=== PATIENT | female | born 1945 | race African-American/Black ===

== ENCOUNTER 2025-07-24 21:22 | Observation (INO) | payer OTHER, SELFPAY ==
[2025-07-24 15:21] VITALS: BP 150/82
[2025-07-24 16:02] LABS: Hematocrit 36.9 % (37.0-47.0); Hemoglobin 12.1 g/dL (12.0-16.0); Mean Corp Hgb Conc. 32.8 g/dL (33.0-37.0); Mean Corpuscular Volume 90.7 fL (81.0-99.0); Nucleated Red Blood Cells % 0 %; Platelet Count 241 10^3/uL (130-400); Red Cell Dist. Width 12.2 % (11.5-14.5)
[2025-07-24 16:28] LABS: ALT (SGPT) 33 U/L (0-35); AST (SGOT) 26 U/L (14-36); Albumin 4.4 g/dl (3.5-5.0); Alkaline Phosphatase 75 U/L (38-126); Blood Urea Nitrogen 23 mg/dl (7-17); Calcium 9.3 mg/dl (8.4-10.2); Carbon Dioxide 27 mmol/L (22-30); Chloride 101 mmol/L (98-107); Glucose 140 mg/dl (70-99); Potassium 4.3 mmol/L (3.5-5.1); Sodium 135 mmol/L (135-145); Total Protein 7.3 g/dl (6.3-8.2); eGFR > 60.00
[2025-07-24 16:39] LABS: Troponin I < 0.012 ng/ml
--- NOTE | 2025-07-24 18:00 | EDRN ---
Pt with multiple family members in full waiting room, including young children yelling and jumping on chairs. Respectfully asked family to lower volume and activity in order to maintain calm environment for other patients.
--- NOTE | 2025-07-24 18:53 | ED.CVA ---
History of Present Illness
General
Chief Complaint: CVA/TIA Symptoms
Source: patient and family
Time Seen by Provider: 07/24/25 18:33
Onset of Stroke Symptoms
Onset of symptoms known: Yes
Date of onset of symptoms: 07/24/25
History of Present Illness
History of Present Illness:
This patient is a 80-year-old female presents the emergency department with her granddaughter and grandson who witnessed the event today. They state that she is very active and [place] farm and she was 'moving around just fine'. Then,
granddaughter noted that she was sitting down, went over to her and noticed that she became 'totally limp'. She is described as looking 'out of it' without tonic-clonic activity. At one point she was drooling, started to yawn, and would not answer
her questions or speak. Her eyes were mostly open during this time. The whole episode lasted less than 10 minutes and then resolved completely. At that time, family noted that she appeared to have left facial droop. She maintained respirations.
No CPR was initiated. No incontinence. Patient is now back to her usual self without any complaints. Patient does not have memory of the event she remembers sitting down, but does not remember syncope/near syncope. Of note, patient 2 to 3 months
ago had a reported TIA which was described as patient having difficulty talking associated with one-sided weakness and her eyes looking 'fixed'. Patient was admitted to the hospital at that time, had a full workup including an implantable cardiac
monitor, and started on aspirin Plavix. Patient is fully compliant with her medications.
Past History
Past History
ED Past Medical History: HTN, Hypercholesterolemia and Other (TIA)
Social History
Tobacco: Non-smoker
Alcohol: None
Drug: None
Living: with family
Phy Exam
Physical Exam
Physical Exam:
GENERAL: Alert , in no apparent distress
EYE: pupils equal and reactive
NECK: Supple, no significant adenopathy.
ENT: o/p clr, mmm.
CARDIAC: Regular rate and rhythm .
LUNGS: Clear breath sounds bilaterally, no acute respiratory distress, no wheezes/rales/rhonchi
ABDOMEN: Soft, without focal tenderness, no r/g, no cvat
NEUROLOGICAL: Alert and oriented, no focal neuro deficits, motor 5 out of 5, sensory intact, cranial nerves II through XII intact, mcwich-ho-womb normal, NIH equal to 0
SKIN: Warm and dry, skin intact.
MUSCULOSKELETAL: No edema, well perfused.
PSYCH: Normal and appropriate interaction.
Scores
NIH Stroke Score
Level of Consciousness: 0 - Alert
LOC Questions: 0-Answers both correctly
LOC Commands: 0-Performs both correctly
Best Horizontal Gaze: 0-Normal
Visual Campbell: 0=Normal, no visual loss
Facial Palsy: 0=Normal, symmetrical
Motor - Right Arm: 0=No drift 10 seconds
Motor - Left Arm: 0=No drift 10 seconds
Motor - Right Le-No drift 5 seconds
Motor - Left Le-No drift 5 seconds
Limb Ataxia: 0-Absent
Sensation: 0-Normal
Best Language: 0-No aphasia
Dysarthria: 0-Normal
Extinction and Inattention: 0-No abnormality
NIH Total Score:: 0
Course
Orders/Labs/Results
Orders:
Orders
07/24/25 15:26
EKG [Electrocardiogram (*1)] Urgent
Reason for Study: Syncope
EKG- Treatment ONCE
07/24/25 15:[address] [CT Head W/o Iv Contrast] Urgent
Comment:
Reason For Exam: syncope
07/24/25 15:39
Complete Blood Count/With Diff Urgent
Comprehensive Metabolic Panel Urgent
Glycohemoglobin (HgbA1c) Urgent
Troponin I Urgent
07/24/25 20:57
Admit/Transfer Patient As Directed
Co-Sign Provider:
Level of Care: Observation services
Assign to:: Telemetry
Physician / Group: [email or web address]
Diagnosis: TIA/ CVA for syncope with transient facial droop
Reason for Telemetry: CVA/TIA
Date to Stop Telemetry: 07/27/25
Time to Stop Telemetry: 11:00
07/24/25 20:59
Code Status As Directed
Resuscitation Status: Full Code
07/24/25 22:16
Acetaminophen [Tylenol/Feverall] 650 mg RECTAL Q4HPRN PRN
Acetaminophen [Tylenol] 650 mg PO Q4HPRN PRN
07/24/25 22:16
Case Management Consult ONCE
Case Management Consult: Discharge Planning
Comment: stroke/tia
DIETARY IP CONSULT Routine
Reason for Consult: stroke/TIA
NEUROLOGY CONSULT Urgent
Consulting Provider: Micky Mcdonald
Was physician already notified: Yes
Reason for consult: TIA/CVA
Conference Interpreter Urgent
Activity As Directed
Activity Level: With Assistance
NIH Stroke Scale As Directed
Directions: Per protocol
Comment: every shift and with any change in condition or mental status
Neurological Checks As Directed
Frequency: q4h
Additional Instructions:: q4h x 24h upon admission to the floor, then qshift & with any change in condition
and mental status
Obtain Records As Directed
Dates of Information to be Released: 2024
Type of Information Requested: Discharge Summary
Patient Education As Directed
Type: Stroke education packet
Comment: provide to patient and family
Pneumatic Compression Sleeves As Directed
Type: Knee high
Swallow Screening CVA/TIA ONLY As Directed
Comment: NPO until swallowing screening completed
If patient FAILS swallow screening:: NPO, Speech Therapy consult, Aspiration Precautions
If patient PASSES swallow screening, diet:: Cholesterol Lowering
Above diet order entered?: Yes- passed screening
Vital Signs As Directed
Frequency: Per unit guidelines
Ot Eval And Treat Routine
Pt Eval And Treat Routine
Activity Level: With Assistance
Speech Therapy Eval & Treat Routine
DX Deep Vein Thrombosis Video Routine
07/25/25 06:27
Basic Metabolic Panel IN AM
Cardiovascular Evaluation IN AM
Complete Blood Count/No Diff IN AM
07/25/25 08:00
Amlodipine [Norvasc] 10 mg PO DAILY
Aspirin Chewable [Low Strength Aspirin] 81 mg PO DAILY
Carvedilol [Coreg] 25 mg PO BID
Clopidogrel Bisulfate [Plavix] 75 mg PO DAILY
Olmesartan Medoxomil [Benicar] 20 mg PO DAILY
07/25/25 18:00
Rosuvastatin Calcium [Crestor] 10 mg PO QPM
07/27/25 11:00
DC Protocol for Telemetry ONCE
Abnormal Lab Results
07/24/25
15:39
RBC 4.07 L 10^6/uL
(4.20-5.40)
Hct 36.9 L %
(37.0-47.0)
MCHC 32.8 L g/dL
(33.0-37.0)
Monocytes % 10.3 H %
(1.7-9.3)
BUN 23 H mg/dl
(7-17)
Glucose 140 H mg/dl
(70-99)
Hemoglobin A1c 5.7 H %
(4.0-5.6)
07/24/25 15:39
07/24/25 15:39
Vital Signs
Initial and Last Documented VS:
Initial Vital Signs
Temp Pulse Resp BP Pulse Ox
98.5 F 74 16 150/82 98
07/24/25 15:21 07/24/25 15:21 07/24/25 15:21 07/24/25 15:21 07/24/25 15:21
Last Documented Vital Signs
Temp Pulse Resp BP Pulse Ox
98.2 F 78 16 129/76 99
07/25/25 15:00 07/25/25 15:00 07/25/25 15:00 07/25/25 15:00 07/25/25 15:00
*Pulse Oximetry
SaO2: 98
Oxygen Mode of Delivery: Room air
Patient hypoxic: no
*Critical Care Note
Total Time (30-74mins, 75-104mins- exclusive of procedures): Not Applicable
Update Note
Update Note:
Patient presents to the Emergency Department with ___syncopal event
Number and Complexity of Problems Addressed at the Encounter
� Chronic conditions affecting care:
� Acute Exacerbation and/or Progression of Chronic Illness:
� Differential Diagnosis includes: But not limited to TIA, intracranial bleed, arrhythmia, etc. etc.
Amount and/or Complexity of Data to be Reviewed and Analyzed
� I performed an independent evaluation of and my interpretation is:
EKG: Read by me, normal sinus rhythm, LAD, no acute ischemia
CT:No acute intracranial abnormality noted.
Small focus of right frontal scalp soft tissue thickening which may represent a small contusion.
Xrays:
Laboratory Studies: Troponin within normal limits, generally unremarkable
Other:
� Review of other/old records reveals:
� Clinical information was obtained by an independent historian: Granddaughter who witnessed event and is at bedside, describes event in detail
� Prescriptions/Medications Considered but not given:
� Further testing considered but not performed:
Risk of Complications and/or Morbidity or Mortality of Patient Management
� Social determinants of health affecting care:
� Discussion with other providers (PCP, Hospitalists, Consultants, etc):
� Escalation of care including admission/observation vs risk of discharge considered: Since arrival in the ER and history and physical by me, patient is awake alert and very vibrant, very knowledgeable regarding her prior medical
history, blood pressure management, etc. 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 In regards to her implantable monitor, she reports Dr. Dalila stephens is her patient monitor who monitors this. I called their office , and there was an option to either leave
a message or send a text. I have not had a return of this message.
8:31 PM patient now asymptomatic. Unable to access results regarding patient's implantable monitor. Unclear specific etiology for her syncopal event� Consideration for arrhythmia versus vasovagal versus heat related versus TIA. Recommend
overnight observation which patient agrees to. [place] text sent to hospitalist.
ED Attending Note
-
Portions of this chart may have been created with voice recognition software.� Occasional wrong word or��sound alike� substitutions may have occurred due to the inherent limitations of voice recognition software.
Discharge Plan
Departure
Patient Disposition: Admit
Date of Disposition: 07/24/25
Time of Disposition: 20:31
Admit to: Telemetry
Presentation/result/management discussed w/ accepting MD/DO: Hospitalist
Condition: Fair
Discharge Problem:
Syncope
Interventions
Interventions:
*Risk Screen - Suicide Last Done: 07/24/25 22:34
*General Assessment Last Done: 07/24/25 15:21
*Neglect/Abuse Screening Last Done: 07/24/25 15:21
*ED- Fall Risk Assessment Last Done: 07/24/25 15:21
*ED COVID-19 Vaccine History Last Done: 07/24/25 22:34
*Nursing Disposition Last Done: 07/24/25 22:08
ED- Pulmonary Assessment Last Done: 07/24/25 18:30
ED- Neurological Assessment Last Done: 07/24/25 20:03
ED- Cardiac Assessment Last Done: 07/24/25 18:30
ED Swallowing Screen Last Done: 07/24/25 18:30
Discharge Date and Time
Discharge Date/Time: 07/24/25 22:15
[2025-07-24 19:00] VITALS: BP 143/66
[2025-07-24 20:00] VITALS: BP 135/68
--- NOTE | 2025-07-24 20:52 | HPS.HSE ---
Family Physician
-
Family Physician:
Chief Complaint
-
witnessed syncope
History of Present Illness
80F Non smoker HX TIA, HTN, HLD seen at ER
- witnessed syncope
- per grand kids - she is very active and they were at a farm and she was 'moving around just fine'.
- Then, granddaughter noted that she was sitting down, went over to her and noticed that she became 'totally limp'.
- She is described as looking 'out of it' without tonic-clonic activity.
- At one point she was drooling, started to yawn, and would not answer her questions or speak.
- eyes were mostly open during this time.
- The whole episode lasted less than 10 minutes and then resolved completely.
- At that time, family noted that she appeared to have left facial droop.
- No incontinence.
- Patient is now back to her usual self without any complaints.
- unable to recall the event she remembers sitting down, but does not remember syncope/near syncope.
Of note, patient 2 to 3 months ago had a reported TIA which was described as patient having difficulty talking associated with one-sided weakness and her eyes looking 'fixed'. Patient was admitted to the hospital at that time, had a full workup
including an implantable secured entrance monitor, and started on aspirin Plavix. Patient is fully compliant with her medications.
Medical History
Past Medical History
Past Medical History: Reports CVA (TIA ), HTN and Hypercholesterolemia
Past Surgical History: Reports None
Social History
Tobacco: Non-smoker
Alcohol: None
Living: With Family
Family History
Family History: Not pertinent
Allergies / Home Medications
Allergies reflects when Allergies were last updated in [facility].
Home Medications with original date entered in [facility]
Allergy/Medication List:
Allergies
Allergy/AdvReac Type Severity Reaction Status Date / Time
No Known Allergies Allergy Unverified 07/24/25 15:21
If medication reconciliation has not been performed, why?: Medication List N/A
Review of Systems
-
Constitutional: Reports No Symptoms
EENT: Reports No Symptoms
Respiratory: Reports No Symptoms
Cardiac: Reports Syncope
Abdomen/GI: Reports No Symptoms
: Reports No Symptoms
Musculoskeletal: Reports No Symptoms
Skin: Reports No Symptoms
Neurological: Reports See HPI
Endocrine: Reports No Symptoms
Hematologic/Lymphatic: Reports No Symptoms
Psych: Reports No Symptoms
Physical Exam
Vital Signs
Vital Signs
Temp Pulse Resp BP Pulse Ox
98.5 F 71 25 135/68 99
07/24/25 15:21 07/24/25 20:00 07/24/25 20:00 07/24/25 20:00 07/24/25 19:00
Physical Exam
General: Well Developed, Well Nourished and No Apparent Distress
HEENT: NormoCephalic, Moist mucous membranes and Atraumatic
Respiratory: Clear
Cardiac: S1/S2 and Regular Rhythm; No Murmur or Rub
GI: Soft, Non Tender, Non Distended and Normal Bowel Sounds; No Organomegaly
Rectal: Deferred by Provider
Musculoskeletal: No Clubbing, No Cyanosis and No Edema
Skin: No Rash
Neuro: Nonfocal/grossly intact
Laboratory Results
-
07/24/25 15:39
07/24/25 15:39
Laboratory Results
Total Bilirubin 0.4 mg/dl (0.2-1.3) 07/24/25 15:39
AST 26 U/L (14-36) 07/24/25 15:39
ALT 33 U/L (0-35) 07/24/25 15:39
Alkaline Phosphatase 75 U/L (38-126) 07/24/25 15:39
Troponin I < 0.012 ng/ml 07/24/25 15:39
Data Reviewed
-
CT Scan: Report Reviewed by me
Medical Tests (Nuc Med, Echo, EKG etc): Report Reviewed by me
Lab Data: Discussed with Physician
Impression/Plan
-
Vital Signs
Temp Pulse Resp BP Pulse Ox
98.5 F 71 25 135/68 99
07/24/25 15:21 07/24/25 20:00 07/24/25 20:00 07/24/25 20:00 07/24/25 19:00
NIH Stroke Score
Level of Consciousness: 0 - Alert
LOC Questions: 0-Answers both correctly
LOC Commands: 0-Performs both correctly
Best Horizontal Gaze: 0-Normal
Visual Campbell: 0=Normal, no visual loss
Facial Palsy: 0=Normal, symmetrical
Motor - Right Arm: 0=No drift 10 seconds
Motor - Left Arm: 0=No drift 10 seconds
Motor - Right Le-No drift 5 seconds
Motor - Left Le-No drift 5 seconds
Limb Ataxia: 0-Absent
Sensation: 0-Normal
Best Language: 0-No aphasia
Dysarthria: 0-Normal
Extinction and Inattention: 0-No abnormality
NIH Total Score:: 0
Relevant Data
07/24/25
WBC 4.9
Hgb 12.1
Plt Count 241
BUN 23 H
Creatinine 0.9
eGFR > 60.00
Troponin I < 0.012
EKG
SINUS RHYTHM WITH PREMATURE ATRIAL COMPLEXES WITH Aberrant conduction
POSSIBLE LEFT ATRIAL ENLARGEMENT
LEFT AXIS DEVIATION
MINIMAL VOLTAGE CRITERIA FOR LVH, MAY BE NORMAL VARIANT ( [employer] )
ABNORMAL ECG
NO PREVIOUS ECGS AVAILABLE
HCT
- No acute intracranial abnormality noted.
- Small focus of right frontal scalp soft tissue thickening which may re
NO PRIOR hospitalist admission:
ASSESSMENT & PLAN
Pending Rx reconciliation
Evaluation for TIA/ CVA
Syncope wit assoc facial droop - resolved
- Recent HX TIA s/p full workup including an implantable secured entrance monitor, and started on aspirin Plavix
- compliance with DAPL
- c/w DAPL
- c/w Rosuvastatin
- Brain MRI in AM
- Obtain records for [facility]
- Neuro consult
Essential HTN
- currently normotensive
- c/e amlodipine, carvedilol and olmarsartan - hold if SBP < 110
HLD
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
DVT Px: SCD
Full Code
OBS TLM
[2025-07-24 22:00] VITALS: BP 111/61
[2025-07-24 22:15] VITALS: BP 163/85
--- NOTE | 2025-07-24 22:30 | PTCARENOTE ---
Pt transported to 3W from ED via stretcher. Pt independent from stretcher to bed, vitals signs stable and NIH-0. Pt AAOX3, oriented to room and call rinaldi within reach. Pt on TELE #10.
[2025-07-25] VITALS (7 sets, daily range): BP systolic 105–149; BP diastolic 64–86; PULSE 76–90
[2025-07-25 07:08] LABS: Hematocrit 34.6 % (37.0-47.0); Hemoglobin 11.5 g/dL (12.0-16.0); Mean Corp Hgb Conc. 33.2 g/dL (33.0-37.0); Mean Corpuscular Volume 90.3 fL (81.0-99.0); Platelet Count 224 10^3/uL (130-400); Red Cell Dist. Width 12.2 % (11.5-14.5)
[2025-07-25] MEDS: NORVASC 10 MG PO (07:11)
[2025-07-25] MEDS: PLAVIX 75 MG PO (07:11)
[2025-07-25] MEDS: LOW STRENGTH ASPIRIN 81 MG PO (07:11)
[2025-07-25] MEDS: BENICAR 20 MG PO (07:11)
[2025-07-25] MEDS: COREG 25 MG PO (07:11)
--- NOTE | 2025-07-25 07:15 | W.PN.HOSP.TC ---
Today's Communication/Plan
-
DC home
Recommend to keep follow-up outpatient with neurologist and office specialist
Assessment / Plan
Assessment / Plan
#Syncope with associated facial droop suspected likely secondary to seizure versus vasovagal event
#History of TIA
CT head was negative for acute stroke
MRI brain was negative for acute stroke
Per discussion with neurology highly suspicious for seizure.
Neurology offered patient to be started on antiepileptic medication however patient refused states she will follow-up with her neurologist as outpatient.
Mild orthostatic before starting working with physical therapy however dizziness resolved. Patient was ambulating in the hallway. Can stop IV fluid later today.
Patient is being maintained on antiplatelet agents per her primary office specialist. Continue aspirin and Plavix
Continue with statin
Per neurology will defer antiplatelet agents to patient's primary office specialist
Primary hypertension
Continue with Norvasc, ARB and beta-ousmane
Follow-up with primary office specialist
Hyperlipidemia
Continue with statin
Discussed case with RN
Discussed case with patient daughter at bedside
Discussed case with neurologist. Per neurologist patient can be discharged no further testing required.
PT eval-no skilled PT needed
More than 30 minutes spent in discharge including
Final examination of the patient
Summarizing hospital stay
Instructions for continuing care to all relevant caregivers
Preparation of discharge records, prescriptions, and referral forms
Total time spent (in minutes): 52
Anticipated Discharge: Today
Subjective/Interval History
-
Date of Service: July 25, 2025
Patient stated yesterday she was out and about in her forearm. Patient was out in the sun yesterday.
Patient had breakfast and solid food. However was not drinking enough water. States she was sipping on it.
Currently denies any lightheadedness dizziness. Denies any weakness.
Denies any palpitations or chest pain.
Objective Data
-
Labs:
Laboratory Results
07/25/25
06:27
WBC 3.5 L
Hgb 11.5 L
Hct 34.6 L
Plt Count 224
Sodium Pending
Potassium Pending
Chloride Pending
Carbon Dioxide Pending
BUN Pending
Creatinine Pending
Glucose Pending
Calcium Pending
Vital Signs:
Vital Signs
Temp Pulse Resp BP Pulse Ox
98.3 F 68 16 138/74 100
07/25/25 07:10 07/25/25 07:11 07/25/25 07:10 07/25/25 07:11 07/25/25 07:10
I&O
07/24/25 07/25/25 07/26/25
06:59 06:59 06:59
Intake Total 480 / 480
Balance 480 / 480
Physical Exam
-
General: No Apparent Distress
HEENT: Normocephalic, Atraumatic and Moist Mucous Membranes
Respiratory: Clear to Auscultation
Cardiac: Regular Rhythm and S1/S2; Negative Murmur, Rub or Gallop
GI: Soft, Nontender, Nondistended and Normal Bowel Sounds; Negative Organomegaly
Rectal: Deferred by Provider
Musculoskeletal: No Clubbing, No Cyanosis and No Edema
Skin: Negative Rash
Neuro: Awake, Alert, Oriented, AO x 3, No Motor Deficits, Nonfocal/Grossly Intact and No Sensory Deficits; Negative Slurred Speech
Psych: Calm
[2025-07-25 07:39] LABS: Blood Urea Nitrogen 16 mg/dl (7-17); Calcium 9.2 mg/dl (8.4-10.2); Carbon Dioxide 30 mmol/L (22-30); Chloride 105 mmol/L (98-107); Estimated Creatinine Clearance 52 ml/min; Glucose 101 mg/dl (70-99); HDL Cholesterol 48 mg/dl; LDL Cholesterol, Calculated 91 mg/dl; Potassium 4.6 mmol/L (3.5-5.1); Sodium 139 mmol/L (135-145); Very Low Density Lipoprotein 13 mg/dl (0-30); eGFR > 60.00
[2025-07-25 08:17] LABS: Glycohemoglobin (HgbA1c) 5.7 % (4.0-5.6)
--- NOTE | 2025-07-25 10:05 | CON.NEURO ---
Neuro Assessment/Plan
Assessment
Brain MRI imgs rev'd, negative for acute stroke.
I believe this is a seizure as she had the same event several months ago, the exact same way. At that time, she had MRI, EEG, and loop recorder that didn�t show anything.
I offered her seizure RX, and discussed side effects of Keppra and Zonisamide. but she would rather wait and see how frequently these events were happening
Exam looks like stroke with a pretty obvious right facial droop when she smiles, and mild right sided weakness. with negative brain MRI, this is likely a chronic stroke.
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
So I don�t see any more testing that can be done and I think she can go home.
Consultation
Order
Date of Consultation: 07/25/25
Requesting Provider: Qi
Reason for Consult: syncope
Subjective/Objective
Subjective Data
Date of Service: July 25, 2025
from [facility]&p
- witnessed syncope
- per grand kids - she is very active and they were at a farm and she was 'moving around just fine'.
- Then, granddaughter noted that she was sitting down, went over to her and noticed that she became 'totally limp'.
- She is described as looking 'out of it' without tonic-clonic activity.
- At one point she was drooling, started to yawn, and would not answer her questions or speak.
- eyes were mostly open during this time.
- The whole episode lasted less than 10 minutes and then resolved completely.
- At that time, family noted that she appeared to have left facial droop.
- No incontinence.
- Patient is now back to her usual self without any complaints.
- unable to recall the event she remembers sitting down, but does not remember syncope/near syncope.
Of note, patient 2 to 3 months ago had a reported TIA which was described as patient having difficulty talking associated with one-sided weakness and her eyes looking 'fixed'. Patient was admitted to the hospital at that time, had a full workup
including an implantable director of cardiac rehabilitation, and started on aspirin Plavix. Patient is fully compliant with her medications.
patient reports exact same event several months ago. at the time, she had MRI, EEG, loop recorder, all negative. carotid ultrasound showed plaque without significant stenosis.
Objective Data
Vital Signs
Temp Pulse Resp BP Pulse Ox
36.8 C 68 16 138/74 100
07/25/25 07:10 07/25/25 07:11 07/25/25 07:10 07/25/25 07:11 07/25/25 07:10
Lab Results
07/25/25 06:27
07/25/25 06:27
Sodium 139 mmol/L (135-145) 07/25/25 06:27
Potassium 4.6 mmol/L (3.5-5.1) 07/25/25 06:27
BUN 16 mg/dl (7-17) 07/25/25 06:27
Glucose 101 mg/dl (70-99) H 07/25/25 06:27
Calcium 9.2 mg/dl (8.4-10.2) 07/25/25 06:27
LDL Cholesterol, Calc 91 mg/dl 07/25/25 06:27
Patient Allergies
No Known Allergies Allergy (Unverified 07/24/25 15:21)
Physical Exam
-
AAOx3, speech clear, language intact
VFF, EOMI, Right facial droop
RUE/LE 5-/5, LUE/LE full strength.
Medications
-
Active Medications
Generic Name Dose Route Start Last Admin
Trade Name Freq PRN Reason Stop Dose Admin
Acetaminophen 650 mg 07/24/25 22:16
Acetaminophen 650 Mg Rectal Suppository RECTAL 08/21/25 22:15
Q4HPRN PRN
CAMPBELL, mild pain, or temp >100.4F
Acetaminophen 650 mg 07/24/25 22:16
Acetaminophen 325 Mg Tablet PO 08/21/25 22:15
Q4HPRN PRN
CAMPBELL, mild pain, or temp >100.4F
Amlodipine Besylate 10 mg 07/25/25 08:00 07/25/25 07:11
Amlodipine 10 Mg Tablet PO 08/22/25 07:59 10 mg
DAILY VIDYA Administration
Aspirin 81 mg 07/25/25 08:00 07/25/25 07:11
Aspirin 81 Mg Chewable Tablet PO 08/22/25 07:59 81 mg
DAILY VIDYA Administration
Carvedilol 25 mg 07/25/25 08:00 07/25/25 07:11
Carvedilol 25 Mg Tablet PO 08/22/25 07:59 25 mg
BID VIDYA Administration
Clopidogrel Bisulfate 75 mg 07/25/25 08:00 07/25/25 07:11
Clopidogrel 75 Mg Tablet PO 08/22/25 07:59 75 mg
DAILY VIDYA Administration
Olmesartan 20 mg 07/25/25 08:00 07/25/25 07:11
Olmesartan 20 Mg Tablet PO 08/22/25 07:59 20 mg
DAILY VIDYA Administration
Rosuvastatin Calcium 10 mg 07/25/25 18:00
Rosuvastatin (Crestor) 10 Mg Tablet PO 08/22/25 17:59
QPM VIDYA
Home Medications
�Medication �Instructions �Recorded
amlodipine 10 mg PO DAILY 07/25/25
aspirin 81 mg PO DAILY 07/25/25
carvedilol 25 mg PO BID 07/25/25
clopidogrel 75 mg PO DAILY 07/25/25
olmesartan 20 mg PO DAILY 07/25/25
rosuvastatin 10 mg PO QPM 07/25/25
--- NOTE | 2025-07-25 10:19 | PTOTSP ---
Speech Pathology
Clinical Swallow Evaluation
80F with admission for TIA/CVA workup presents w/ a functional oropharyngeal swallow. No overt s/s of aspiration with all consistencies trialed this date. CT negative. Awaiting results of MRI. Prior history of TIA 2-3 months ago per chart. Speech to
follow up ONLY IF MRI positive.
Recommend:
1. Maintain regular textures (IDDSI 7), thin liquids (IDDSI 0)
2. Meds as best tolerated
3. General aspiration precautions
4. GAGE MAKER service to follow up ONLY if MRI positive; IF MRI positive, would recommend cognitive communication evaluation and dysphagia f/u to r/o silent aspiration
[2025-07-25] MEDS: LR 1000 IV (10:58)
--- NOTE | 2025-07-25 11:58 | CHAP ---
Amada was welcoming, said she's doing well. She was very appreciative of prayer. Emotional and spiritual support provided.
--- NOTE | 2025-07-25 12:04 | W.DCSUMMARY ---
Discharge Summary
Discharge Data
Date of Admission: 07/24/25
Date of Discharge: 07/25/25
-
Pending Results: No
Hospital Course
80-year-old female past medical history of TIA, hypertension, hyperlipidemia, who is presenting with episode of shaking and facial droop. Patient had episode of syncope/near syncope. By family patient [place]. Patient was
out in the sun yesterday. Patient had breakfast however was not drinking enough liquids. Patient was sipping on water. Patient was brought into the ER. CT of the head was negative for acute pathology. Patient was eval by neurology. MRI of the
brain was negative for acute stroke. Patient was continued on her antiplatelet agents with aspirin Plavix and home blood pressure medication regimen. Patient without any episode of syncope in the hospitalization. Per neurology patient symptoms
likely due to seizure related activity. Patient with right facial droop which per neurologist is likely chronic related to her chronic stroke. Neurology offered for patient to be started on antiepileptic medication which patient refused. Patient
stated she will continue to monitor her symptoms. Neurologist recommended no further testing. This was discussed with patient and patient daughter at bedside about antiepileptic medication to be started on. Patient stated she will follow-up with
her mohel and her neurologist. Patient was eval by physical therapy and had episode of mild lightheadedness upon standing up. Patient received IV fluid resuscitation. Patient was ambulating in the hallway without any difficulty. Patient
will be discharged home with recommendation to follow-up with a primary mohel and neurologist and primary doctor.
Discharge Plan
-
Patient Disposition: Home (Routine Discharge)
Discharge Diagnosis/Procedures: Syncopal episode likely secondary to seizure versus vasovagal event
Condition: Fair
Diet: Low Cholesterol
Activity: With assistance and As tolerated
Driving Restrictions: Not until seen by your Dr
Activity Restrictions/Additional Instructions:
Recommend to follow-up with her primary neurologist and mohel.
Referrals:
Paulette Cowart PA [Family Provider, General] - in less than 1 week
Jason Mcdowell MD [Active, Neurology] - in two to three weeks
Prescriptions:
Continued
amlodipine 10 mg tablet
10 mg PO DAILY
aspirin 81 mg tablet
81 mg PO DAILY
carvedilol 25 mg tablet
25 mg PO BID
clopidogrel 75 mg tablet
75 mg PO DAILY
olmesartan 20 mg tablet
20 mg PO DAILY
rosuvastatin 10 mg tablet
10 mg PO QPM
Discharge Date and Time
Print Language: MONGOLIAN
--- NOTE | 2025-07-25 15:25 | CM ---
Alert awake oriented patient who lives alone and next to family members. She has 10 steps to enter building and 10 plus 15 to her bed bathroom.She does not drive, She is independent in all ADLs. KAYE letter explained signed on chart. Offered VN she
declined need. Dgt Bonnie present and will drive her home.
NO hx of VN /SNF
Pharmacy [facility]
PCP Dr Cowart
PLAN Home no needs
== END 2025-07-25 16:45 | disposition home or self-care (01) ==
LOC: 3 WEST ACU 21:22
PROVIDERS: Emergency Medicine; ADMITTING PHYSICIAN Internal Medicine; ATTENDING PHYSICIAN Hospitalist; CONSULT PHYSICIAN Psychiatry & Neurology Clinical Neurophysiology; EMERGENCY PHYSICIAN Emergency Medicine; REFERRING PHYSICIAN Internal Medicine Cardiovascular Disease
DX: R55 Syncope and collapse (principal); I10 Essential (primary) hypertension; E78.00 Pure hypercholesterolemia, unspecified; R29.810 Facial weakness; Z79.02 Long term (current) use of antithrombotics/antiplatelets; Z79.82 Long term (current) use of aspirin; Z79.899 Other long term (current) drug therapy; Z86.73 Personal history of transient ischemic attack (TIA), and cerebral infarction without residual deficits
CPT/HCPCS: 70450; 70551; 80048; 80053; 80061; 83036; 84484; 85025; 85027; 92610; 93005; 97163; 97166; 99285; G0378